=== PATIENT | male | born 1985 | race Caucasian/White ===

== ENCOUNTER 2020-10-27 20:44 | Emergency (ER) | payer OTHER, SELFPAY ==
[2020-10-27 21:00] VITALS: BP 151/98; PULSE 81; RESP 20; TEMP 36.7; O2SAT 100; BMI 25.8
--- NOTE | 2020-10-27 21:21 | HMH.EDUTC ---
[facility] Disposition Clinical Impression: Blood pressure check Disposition: Home, Self-Care Condition on Discharge: Good Instructions: Keeping Sodium Low When You're Eating on the Go, Low-Sodium Diet, Lower Sodium Intake Associated with Lower Blood Pressures and Decreased Str Additional Instructions: Lower your sodium intake and eating healthy may help with lowering your blood pressure *Avoid energy drinks, these can raise your blood pressure and cause you to have energy crashes Make sure to make appointment and follow up with PCP for re-evaluation of your blood pressure and treatment if needed Make sure that you are heating a heart healthy diet Exercise and weight loss can help with lowering your blood pressure Straight to ER if any life threatening symptoms Referrals: PCP,No [Primary Care Provider] - As needed Time of Disposition: 21:33 Medical Decision Making - Gurmeet Inquiry Pt receiving controlled substance: Sigrid Levi was queried for this patient: No Vital Signs: 10/27/20 21:00 Temperature 98.0 F Temperature Source Temporal Artery Scan Pulse Rate [Right Brachial] 81 Respiratory Rate 20 Blood Pressure [Right Arm] 151/98 H Blood Pressure Mean [Right Arm] 115 Blood Pressure Source [Right Arm] Automatic Cuff Blood Pressure Position [Right Arm] Sitting 02 Sat by Pulse Oximetry 100 Oxygen Delivery Method Room Air Medical Decision Narrative: Patient blood pressure checked multiple times in [facility] 140/93 in right and 144/93 in left arm Discussed life style changes after he advised he drinks 3-4 energy drinks a day and eats lots of junk foods Life style changes discussed and recommended and follow up with his PCP for re-evaluation of Blood pressure to see if they have worked or if they need to start him on medication [facility] HPI - General Stated complaint: Possible Blood Pressure high Time Seen by Provider: 10/27/20 21:21 Mode of Arrival: Ambulatory Source of Information: Patient Limitations: No Limitations Description of Symptoms (Recalled from Triage Doc. by RN): PATIENT REQUESTING TO HAVE BLOOD PRESSURE CHECKED. STATES HE HAS BEEN VERY TIRED AND HIS BLOOD PRESSURE WAS HIGH WHEN HE CHECKED IT AT [facility] Symptoms (Recalled from RN notes): No Resp Symptoms (Recalled from RN notes): No Skin Symptoms (Recalled from RN notes): No MS Symptoms (Recalled from RN notes): No Functional Status (Recalled from RN notes): WNL - History of Present Illness Provider Complaint: Patient states that he wanted to have his blood pressure checked States that he has been feeling a little tired lately and he checked his blood pressure at [employer] on one of the machines last night and it was high Denies any other symptoms - Related Data Allergies Allergy/AdvReac Type Severity Reaction Status Date / Time No Known Allergies Allergy Verified 10/27/20 21:13 - Worker's Comp Is this a Worker's Comp case?: No [facility] History - Hepatitis A Screen Drug use history?: No High risk sexual behaviors?: No History of sexually transmitted infection?: No Currently employed?: No Childcare worker?: No Do you have indoor plumbing?: Yes Do you have electricity?: Yes Attestation statement:: This patient has been screened for Hepatitis A risk factors. I have reviewed the patient's past medical history: Yes ROS Obtained: Yes All systems reviewed & no additional complaints, Yes Systems reviewed as appropriate & no additional complaints - Constitutional Constitutional: Reports system reviewed and no additional complaints, except as docu, Denies headache(s) - Eyes Eyes: Reports system reviewed and no additional complaints, except as docu, Denies blurry vision, Denies loss of vision, Denies photophobia - ENT Ears, Nose, Mouth, and Throat: Reports system reviewed and no additional complaints, except as docu - Cardiovascular Cardiovascular: Reports system reviewed and no additional complaints, except as docu, Denies chest pain, Denies dyspnea
[2020-10-27 21:27] VITALS: BP 140/93
[2020-10-27 21:35] VITALS: BP 140/93; PULSE 81; RESP 20; TEMP 36.7; O2SAT 100
== END 2020-10-27 21:42 | disposition home or self-care (01) ==
PROVIDERS: Emergency Provider Nurse Practitioner
DX: R03.0 Elevated blood-pressure reading, without diagnosis of hypertension (principal); R53.1 Weakness
CPT/HCPCS: 99202; G0463

== ENCOUNTER 2021-01-27 16:30 | Emergency (ER) | payer OTHER, SELFPAY ==
[2021-01-27 16:31] VITALS: BP 171/98; PULSE 92; RESP 16; TEMP 36.8; O2SAT 98; BMI 32.5
--- NOTE | 2021-01-27 17:01 | HMH.EDBACK ---
ED Disposition Clinical Impression: Strain of lumbar region Disposition: Home, Self-Care Condition on Discharge: Good Instructions: DI for Low Back Pain Additional Instructions: Return to the emergency department for worsening pain difficulty walking numbness weakness in legs or any other concerns within the next 8 hours otherwise follow-up as recommended Prescriptions: Hydrocod/Acet 5/325 mg [Racine 5/325mg tablet] 1 tab PO Q6HP PRN 3 Days #12 tab PRN Reason: Mild To Moderate Pain Transmission Status: Sent to [facility] Referrals: Provider,Referral, [Primary Care Provider] - - Critical Care Critical Care Time: No Attestation: On 01/27/21, the high probability of a clinically significant, sudden or life threatening deterioration of the following system(s) required my full and direct attention, intervention and personal management. The time I documented below is in addition to time spent performing reported procedures but includes the following listed in this critical care notation. Medical Decision Making - Medical Records Medical records reviewed: Yes: I reviewed the patient's medical records. - Gurmeet Inquiry Pt receiving controlled substance: Yes Gurmeet was queried for this patient: Yes Risks and benefits of using a controlled substance: were discussed with pt by me Vital Signs: 01/27/21 16:31 Temperature 98.2 F Temperature Source Oral Pulse Rate [Right] 92 H Respiratory Rate 16 Blood Pressure [Right Arm] 171/98 H Blood Pressure Mean [Right Arm] 122 Blood Pressure Source [Right Arm] Automatic Cuff Blood Pressure Position [Right Arm] Sitting 02 Sat by Pulse Oximetry 98 Oxygen Delivery Method Room Air Orders (Tests/Meds): ED MEDICATIONS Discontinued Medications Generic Name Dose Route Start Last Admin Trade Name Freq PRN Reason Stop Dose Admin Ketorolac Tromethamine 60 mg 01/27/21 16:40 01/27/21 17:01 Ketorolac 60mg/2ml Vial IM 01/27/21 16:41 60 mg ONCE ONE Administration Lidocaine 1 each 01/27/21 16:40 01/27/21 17:02 Lidocaine 5% Transdermal Patch TP 01/27/21 16:41 1 each ONCE ONE Administration Morphine Sulfate 4 mg 01/27/21 16:40 01/27/21 17:01 Morphine 2mg/Ml Syringe IM 01/27/21 16:41 4 mg ONCE ONE Administration Medical Decision Narrative: 35-year-old male presents with acute onset right lower back pain for the last week and a half. No red flags for cauda equina syndrome, metastasis traumatic injury or infectious etiology. Normal neurological exam without focal deficit. Plan to give pain medicine and refer as he does not have a primary care physician for continued management discussed possibility of needing physical therapy versus MRI. Patient's pain was improved upon reassessment requesting me discharge plan to refer to primary care physician as above Back Pain HPI - General Chief Complaint: Back Pain/Injury Stated Complaint: extreme low back pain (no AO) Time Seen by Provider: 01/27/21 16:30 Mode of Arrival: Ambulatory Limitations: No Limitations Description of Symptoms (Recalled from ER Triage Doc. by RN): patient complains of back pain x 1.5 week. middle to right pain, movement increased pain. - History of Present Illness HPI Narrative: Presents with right lower back pain for the last week and a half. He says he does not remember any injuries or traumatic events. He has no history of cancer and has no fever chills or IV drug use. No dysuria or flank pain no abdominal pain. He denies urinary or bowel incontinence or groin numbness. No weakness in lower extremities. He has been to the emergency room last week [facility] and had muscle relaxers that did not work. MD Complaint: back pain Onset (ago): week(s) (1) Location: lumbar spine Severity: mild Quality: dull Radiation: none - Related Data Previous Rx's Medication Instructions Recorded Hydrocod/Acet 5/325 mg [Racine 1 tab PO Q6HP PRN 3 Days #12 tab
--- NOTE | 2021-01-27 17:49 | PC.NURSE ---
PATIENT READY FOR DISCHARGE BUT WAITING FOR RIDE TO BE PRESENT PRIOR TO DISCHARGING PATIENT PER HOSPITAL POLICY
[2021-01-27 18:50] VITALS: BP 171/116; PULSE 88; RESP 16; TEMP 36.6; O2SAT 99
== END 2021-01-27 18:52 | disposition home or self-care (01) ==
PROVIDERS: Emergency Provider Emergency Medicine
DX: S39.012A Strain of muscle, fascia and tendon of lower back, initial encounter (principal)
CPT/HCPCS: 96372; 96375; 99282

== ENCOUNTER → 2021-03-03 18:13 | Outpatient (CLI) | payer OTHER, SELFPAY ==
[2021-03-03 19:35] LABS: Basophils # 0.1 K/mm3 (0-0.2); Eosinophils # 0.3 K/mm3 (0.0-0.4); Eosinophils % 2.2 % (0.1-12.0); Hematocrit 42.1 % (42.0-52.0); Hemoglobin 14.7 g/dL (14.1-18.0); Lymphocytes % 24.1 % (10-50); Mean Corpuscular HGB Conc 34.8 g/dL (31.8-35.4); Mean Corpuscular Hemoglobin 32.5 pg (27.0-31.2); Mean Corpuscular Volume 93.3 fl (80-94); Mean Platelet Volume 8.4 fl (7.4-10.4); Monocytes # 0.5 K/mm3 (0.1-1.0); Monocytes % 4.2 % (1.7-9.3); Neutrophils # 8.5 K/mm3 (1.8-7.8); Neutrophils % 68.4 % (37.0-80.0); Platelet Count 295 K/mm3 (142-424); Red Blood Count 4.52 M/mm3 (4.60-6.20); Red Cell Distribution Width 12.6 % (11.5-17.5); White Blood Count 12.4 K/mm3 (4.8-10.8)
[2021-03-03 19:52] LABS: Alanine Aminotransferase 14 U/L (12-78); Albumin Level 4.5 g/dl (3.5-5.0); Albumin/Globulin Ratio 1.9 (1.1-1.8); Alkaline Phosphatase 62 U/L (38-126); Anion Gap 15.2 mEq/L (5-15); Aspartate Amino Transferase 22 U/L (17-59); Bilirubin,Total 0.3 mg/dl (0.2-1.3); Blood Urea Nitrogen 13 mg/dl (9-20); Calcium 9.2 mg/dl (8.4-10.2); Carbon Dioxide 27 mmol/L (22.0-30.0); Chloride 104 mmol/L (98-107); Chol/HDL Ratio 5.1 (1-3.5); Cholesterol 137 mg/dl (140-200); Estimated Glomerular Filt Rate 75 ml/min (>60); GFR (African American) 91 ML/MIN (>60); Globulin 2.4 g/dL (1.3-3.2); Glucose 70 mg/dl (74-100); HDL Cholesterol 27 mg/dl (40-60); Potassium 4.2 mmoL/L (3.5-5.1); Sodium 142 mmol/L (136-145); Total Protein,Serum 6.9 g/dl (6.3-8.2); Triglycerides 215 mg/dl (30-150); VLDL Cholesterol 43 mg/dL (0-40)
[2021-03-03 20:00] LABS: 25-OH Vitamin D, Total 36.5 ng/mL (30-100)
[2021-03-03 20:08] LABS: T4 (Thyroxine) 9.6 ug/dl (5.53-11.0)
[2021-03-03 20:11] LABS: Direct LDL Cholesterol 86.43 mg/dL (100-129)
[2021-03-03 20:21] LABS: Thyroid Stimulating Hormone 1.41 uIU/mL (0.465-4.68)
== END ==
PROVIDERS: Visit Provider Nurse Practitioner Family
DX: I10 Essential (primary) hypertension (principal); F39 Unspecified mood [affective] disorder; Z79.899 Other long term (current) drug therapy
CPT/HCPCS: 80053; 80061; 82306; 84436; 84443; 85025

== ENCOUNTER 2021-05-15 00:31 | Emergency (ER) | payer SELFPAY ==
[2021-05-15 01:04] VITALS: BP 135/86; PULSE 75; RESP 18; TEMP 36.7; O2SAT 99; BMI 29.8
--- NOTE | 2021-05-15 01:09 | XR_ITS ---
PROCEDURE INFORMATION: Exam: XR Right Hip Exam date and time: 05/15/2021 1:09 AM Age: 36 years old Clinical indication: Hip pain; Right hip; Additional info: Hip to knee pain TECHNIQUE: Imaging protocol: XR Right hip. Views: 2 or 3 views hip with pelvis when performed. COMPARISON: No relevant prior studies available. FINDINGS: Bones/joints: The right hip joint space appears well maintained. No acute fracture. Soft tissues: Unremarkable. IMPRESSION: No acute findings.
--- NOTE | 2021-05-15 01:09 | XR_ITS ---
PROCEDURE INFORMATION: Exam: XR Right Knee Exam date and time: 05/15/2021 1:09 AM Age: 36 years old Clinical indication: Pain; Knee; Right; Additional info: Pain with radiation from hip to knee TECHNIQUE: Imaging protocol: XR Right knee. Views: 3 views. COMPARISON: No relevant prior studies available. FINDINGS: Bones/joints: There are unfused loose osseous bodies noted along the tibial tuberosity. This suggests the presence of Malden-Schlatter's disease. This is felt to be a remote finding. Position of the patella with respect to the intercondylar notch of the distal femur is normal. There is no evidence of acute fracture. Mild narrowing of the medial compartment identified. Osseous mineralization is normal. Soft tissues: No evidence of knee effusion. There is no overlying soft tissue swelling. IMPRESSION: No acute findings.
--- NOTE | 2021-05-15 01:36 | HMH.EDLOEX ---
ED Disposition Clinical Impression: Acute internal derangement of knee Qualifiers: Laterality: right Qualified Code(s): M23.91 - Unspecified internal derangement of right knee Disposition: Home, Self-Care Condition on Discharge: Good Instructions: DI for Knee Pain, How to Use a Knee Immobilizer Additional Instructions: use meds and see pcp for follow up Referrals: Dontrell Hansen APRN [Primary Care Provider] - - Critical Care Critical Care Time: No Attestation: On 05/15/21, the high probability of a clinically significant, sudden or life threatening deterioration of the following system(s) required my full and direct attention, intervention and personal management. The time I documented below is in addition to time spent performing reported procedures but includes the following listed in this critical care notation. Medical Decision Making - Medical Records Medical records reviewed: Yes: I reviewed the patient's medical records. - Gurmeet Inquiry Pt receiving controlled substance: No Vital Signs: 05/15/21 01:04 Temperature 98.1 F Temperature Source Oral Pulse Rate [Right Brachial] 75 Respiratory Rate 18 Blood Pressure [Right Arm] 135/86 Blood Pressure Mean [Right Arm] 102 Blood Pressure Source [Right Arm] Automatic Cuff Blood Pressure Position [Right Arm] Sitting 02 Sat by Pulse Oximetry 99 Oxygen Delivery Method Room Air - Lab Data Lab results reviewed: Yes: I reviewed the patient's lab results. Orders (Tests/Meds): ED MEDICATIONS Discontinued Medications Generic Name Dose Route Start Last Admin Trade Name Freq PRN Reason Stop Dose Admin Prednisone 60 mg 05/15/21 01:46 Prednisone 20mg Tab PO 05/15/21 01:47 ONCE ONE ORDERS Category Date Time Status XR hip RT 2-3V w/pelvis Stat Exams 05/15/21 01:09 Ordered XR knee RT 4V Stat Exams 05/15/21 01:09 Ordered - Radiology Data #1 Image(s): Knee Image Reviewed: Yes I reviewed the patient's radiology image Preliminary Findings: No Fracture Seen Medical Decision Narrative: trial of meds and will need ortho and mri Lower Extremity Injury HPI - General Chief Complaint: Extremity Injury, Lower Stated Complaint: Sharp pain in right knee radiating down leg Time Seen by Provider: 05/15/21 01:36 Mode of Arrival: Family Vehicle Source of Information: Patient, Medical Record Limitations: No Limitations Description of Symptoms (Recalled from ER Triage Doc. by RN): right knee pain that began 2 days ago; states right knee had a previous surgery on the knee for his meniscus and is worried he might've hurt that in some way. no obvious injury that he recalls. - History of Present Illness HPI Narrative: progressive rt knee pain with no acute trauma but has had prev meniscal injury MD complaint: knee injury Onset (ago): day(s) Injury: Right: knee Type of Injury: unknown Place: home Severity: moderate Exacerbating factors: weight bearing, movement Associated symptoms: able to partially bear weight Other symptoms: none - Related Data Previous Rx's Medication Instructions Recorded cariprazine 1.5 mg capsule 1.5 mg PO DAILY #90 cap 03/23/21 hydrochlorothiazide 25 mg tablet 25 mg PO DAILY #90 tab 03/23/21 lisinopril 10 mg tablet 10 mg PO DAILY #90 tab 03/23/21 hydrocodone 5 mg-acetaminophen 325 1 tab PO BID PRN #6 tab 03/30/21 mg tablet Allergies Allergy/AdvReac Type Severity Reaction Status Date / Time No Known Allergies Allergy Verified 03/30/21 11:19 [facility] History - Hepatitis A Screen Drug use history?: No High risk sexual behaviors?: No History of sexually transmitted infection?: No Currently employed?: No Childcare worker?: No Do you have indoor plumbing?: Yes Do you have electricity?: Yes Attestation statement:: This patient has been screened for Hepatitis A risk factors. I have reviewed the patient's past medical history: Yes - Social History Smoking Status: Current every day sm
[2021-05-15 02:35] VITALS: BP 121/70; PULSE 79; RESP 16; TEMP 36.8; O2SAT 98
== END 2021-05-15 02:38 | disposition home or self-care (01) ==
PROVIDERS: Emergency Provider Emergency Medicine; PCP Nurse Practitioner Family
DX: M23.91 Unspecified internal derangement of right knee (principal); Z88.6 Allergy status to analgesic agent
CPT/HCPCS: 73502; 73562; 99282

== ENCOUNTER → 2021-05-17 15:28 | Outpatient (CLI) | payer SELFPAY ==
--- NOTE | 2021-05-17 15:35 | MR_ITS ---
PROCEDURE INFORMATION: Exam: MR Right Lower Extremity Joint Without Contrast, Knee Exam date and time: 05/17/2021 3:35 PM Age: 36 years old Clinical indication: Pain; Knee; Right; Prior surgery; Surgery date: 6+ months; Additional info: Right knee pain, prior HX surgery on RT knee x3-4yrs ago. Swelling in knee. Lateral sided knee pain. Prior x-ray 05-15-21. TECHNIQUE: Imaging protocol: MR of the Right lower extremity joint without contrast. Exam focused on the knee. COMPARISON: CR XR KNEE RT 3V 05/15/2021 1:46 AM FINDINGS: Bones and cartilage: There is grade I (out of IV) chondromalacia involving the patellofemoral joint. There is grade II (out of IV) low-grade partial-thickness cartilage loss involving the medial compartment. No significant cartilage damage involves the lateral compartment. There is no acute fracture or dislocation. No aggressive bone lesions are present. Mild marginal osteophytes involve the medial joint compartment. There is mild lateral subluxation of the patella. Joint spaces: A moderate joint effusion involves the knee. Periarticular cysts: A small popliteal cyst is present. Medial meniscus: Complex re-tearing involves the anterior horn, body and posterior horn of the medial meniscus with abnormal signal extending to both the superior and inferior meniscal surfaces. The diminutive size of the medial meniscus suggests prior partial meniscectomy. Lateral meniscus: The lateral meniscus shows no convincing tear although there is a 1 mm intermediate signal intensity focus in the posterior horn near the posterior root that extends to the superior meniscal surface (series 4/image 10). Anterior cruciate ligament: Increased T2 signal within the anterior cruciate ligament is consistent with mucinous degeneration. The anterior cruciate ligament fibers are intact. Posterior cruciate ligament: Intermediate T2 signal intensity within the posterior cruciate ligament proximally may represent mucinous degeneration or prior low-grade injury. Medial capsule and supporting structures: No tear. Soft tissue edema superficial to the medial collateral ligament without edema deep to the ligament, and with edema extending to the posterior aspect of the knee makes a medial collateral ligament sprain less likely. Lateral capsule and supporting structures: The lateral collateral ligament complex is intact. Extensor mechanism of knee: Thickening of the distal patellar tendon with associated irregularity and chronic fragmentation of the tibial tubercle is consistent with remote Charlo-Schlatter disease. There is moderate tendinosis of the more proximal patellar tendon. Mild tendinosis involves the distal quadriceps tendon. Muscles: Unremarkable. Soft tissues: A multiloculated ganglion or synovial cyst lies along the posterior aspect of the posterior cruciate ligament with adjacent presumed synovitis. There are normal postoperative punctate foci of micrometallic artifact in the soft tissues. There is moderate edema along the posterior and medial knee deep soft tissues which is of uncertain etiology. The lack of edema deep to the medial collateral ligament makes an medial collateral ligament sprain less likely. IMPRESSION: 1. Complex re-tearing of the medial meniscus superimposed on presumed prior partial medial meniscectomy. 2. Chronic Aguilar-Schlatter disease. 3. Grade I chondromalacia patella.
== END ==
PROVIDERS: PCP Nurse Practitioner Family; Visit Provider Emergency Medicine
DX: M25.561 Pain in right knee (principal); M23.91 Unspecified internal derangement of right knee
CPT/HCPCS: 73721

== ENCOUNTER 2024-11-06 17:15 | Emergency (ER) | payer SELFPAY ==
[2024-11-06 17:16] VITALS: BP 154/99; PULSE 92; RESP 18; TEMP 36.8; O2SAT 97; BMI 38.0
--- NOTE | 2024-11-06 17:16 | ECG_ITS ---
APPROVED REPORT Exam: Resting ECG HR:89 bpm ECG Measurements Heart Rate 89 AXES IL 173 P 45 QRSd 108 QRS 10 QT 343 T 18 QTc 390 Conclusion Sinus rhythm Electronically signed by : YOSI LEVY, 11/06/2024 22:32:26
--- NOTE | 2024-11-06 17:19 | XR_ITS ---
PROCEDURE INFORMATION: Exam: XR Chest Exam date and time: 11/06/2024 5:41 PM Age: 39 years old Clinical indication: Pain; Chest pressure; Additional info: R sided chest pain TECHNIQUE: Imaging protocol: Radiologic exam of the chest. Views: 1 view. COMPARISON: CR XR CHEST PORTABLE 11/06/2024 5:41 PM FINDINGS: Lungs: See Pleural spaces finding. Pleural spaces: Low lung volumes are present without pleural effusions or consolidations that project above the diaphragm. Heart/Mediastinum: Unremarkable. No cardiomegaly. Bones/joints: Unremarkable. IMPRESSION: No acute findings.
--- NOTE | 2024-11-06 17:20 | PC.NURSE ---
[facility]j CERVANTES at bedside
--- NOTE | 2024-11-06 17:24 | ED_ITS ---
Discharge Plan Disposition Patient Disposition: Home, Self-Care Condition: Good Prescriptions Prescriptions: New pantoprazole [Protonix] 40 mg tablet,delayed release (DR/EC) 40 mg PO HS Qty: 30 0RF No Action lisinopril-hydrochlorothiazide 20-12.5 mg tablet 1 tab PO DAILY Patient Comments: TAKE ONE TABLET BY MOUTH ONCE DAILY omeprazole 20 mg capsule,delayed release(DR/EC) 20 mg PO DAILY Patient Comments: TAKE ONE CAPSULE BY MOUTH EVERY DAY Referrals Follow up/Referrals: Evangelist Torres II, MD [Staff Physician] - See instructions Provider,MD Jennifer [Referring] - See instructions Activity Restrictions/Add. Instructions Additional Instructions/Restrictions: As we discussed I have sent in a proton pump inhibitor to your pharmacy. I recommend continuing to take that starting tomorrow night. I have also referred you to gastroenterology for upper endoscopy. If you have any worsening signs or symptoms increasing pain fever bleeding return to the emergency department Clinical Impressions Clinical Impression: Right-sided chest pain, Right upper quadrant abdominal pain Print Language Print Language: Yakut Discharge ED Provider: Mandeep Sims HPI <HELEN Vincent - Last Filed: 11/06/24 21:34> General Chief Complaint: Chest Pain Stated Complaint: Chest Pain Time Seen by Provider: 11/06/24 17:18 History of Present Illness HPI narrative: Patient presents for evaluation of chest pain. Patient gives a history of 4 days of continuous right sided chest pain. He states that he woke up with it. It has been sharp constant does not radiate. It is varied in intensity but is never been absent. He reports some shortness of breath with exertion but denies fever chills hemoptysis hematochezia melena nausea vomiting diarrhea. Patient is a smoker and does have high blood pressure and also has a strong family history of early cardiac with specifically his brother. Related Data Home Medications ?Medication ?Instructions ?Recorded ?Confirmed lisinopril 20 1 tab PO DAILY 11/06/24 11/06/24 mg-hydrochlorothiazide 12.5 mg tablet omeprazole 20 mg capsule,delayed 20 mg PO DAILY 11/06/24 11/06/24 release Previous Rx's ?Medication ?Instructions ?Recorded pantoprazole 40 mg tablet,delayed 40 mg PO HS #30 tabs 11/06/24 release (Protonix) Allergies Allergy/AdvReac Type Severity Reaction Status Date / Time hydrocodone Allergy Intermediate Rash Verified 11/23/21 16:11 [facility] <HELEN Vincent - Last Filed: 11/06/24 21:34> [facility] Disclaimer: The information contained in this section may have been updated after the patient was seen, as this information can be updated by other users. Medical History (Updated 11/06/24 @ 19:43 by HELEN Vincent) HLD (hyperlipidemia) HTN (hypertension) Surgical History (Updated 11/06/24 @ 17:41 by Dang Angel, RN) Hx of right knee surgery Social History Smoking Status: Current every day smoker alcohol intake: never substance use type: denies use current occupational status: employed Travel in the last 8 weeks: None Have you lived/traveled outside US in past 30 days?: No Contact w/someone who lives/traveled outside US past 30 days?: No Exposure to someone with infectious disease in past 14 days?: No Do you have a fever (greater than 100.4 F or 38 C)?: No Have you tested positive for COVID-19: No Exposed to someone with COVID-19 in past 14 days?: No Do you have a sore throat?: No Do you have a cough?: No Do you have any weakness?: No Do you have any diarrhea?: No Are you experiencing any unusual bleeding?: No Do you have any muscle aches/pain?: No Do you have any abdominal pain?: No Are you experiencing loss of taste or smell?: No Other Medical History Have you received the Flu Vaccine for this season: No Have you received the Pneumonia Vaccine: No <HELEN Vincent - Last Filed: 11/06/24 21:34> ROS Obtained: Yes Systems reviewed as appropriate & no additional complaints except as documented Physical Exam <HELEN Vincent - Last Filed: 11/06/24 21:34> General General appearance: alert and in no apparent distress Respiratory Respiratory exam: Absent normal lung sounds bilaterally Cardiovascular Cardiovascular exam: Present regular rate Neurological Exam Neurological exam: Present alert and oriented X3 HEART Score <HELEN Vincent - Last Filed: 11/06/24 21:34> HEART Score HEART Score assessment performed?: Yes History (anamnesis): Slightly suspicious ECG: Normal Age: <45 years Risk factors: 3 or more risk factors Troponin: </= normal limit HEART Score: 2 <Mandeep Sims MD - Last Filed: 11/06/24 21:42> HEART Score HEART Score: 2 Procedures <Mandeep Sims MD - Last Filed: 11/06/24 21:42> Limited Ultrasound Indication:: Limited RUQ ultrasound Indication: Pain Identified structures: -Gallbladder -Gallbladder wall -Common bile duct -Liver Findings: Sonographic Mcrae sign: Absent Gallstones: Absent Sludge: Absent Pericholecystic fluid: Absent Maximal GB wall thickness (mm) (normal is </= 3mm): Normal Common bile duct width (mm) (normal is </= 6mm): Unable to be visualized Gallbladder width (cm) (normal is < 4cm): Normal Gallbladder length (cm) (normal is < 10cm): Normal Impression: Normal right upper quadrant ultrasound, unable to visualize common bile duct Images were saved to permanent archive The study was technically adequate CPT 38380-27 This study was performed by me, and I personally interpreted all images/videos. Based on my clinical judgement, these images were adequate and did not necessitate further imaging. Critical Care <HELEN Vincent - Last Filed: 11/06/24 21:34> Critical Care Time Critical Care Time: Yes Attestation: On 11/06/24, the high probability of a clinically significant, sudden or life threatening deterioration of the following system(s) required my full and direct attention, intervention and personal management. The time I documented below is in addition to time spent performing reported procedures but includes the following listed in this critical care notation. Total Time Total Critical Care Time: 35 Medical Decision Making <HELEN Vincent - Last Filed: 11/06/24 21:34> Medical Records Medical records reviewed: Yes I reviewed the patient's medical records. Gurmeet Inquiry Pt receiving controlled substance: No Vital Signs Vital Signs: 11/06/24 17:16 11/06/24 17:31 11/06/24 17:45 Temperature 98.2 F Temperature Source Oral Pulse Rate 83 96 H Pulse Rate [Right] 92 H Respiratory Rate 18 16 14 Blood Pressure 128/87 128/87 Blood Pressure [Right Arm] 154/99 H Blood Pressure Mean [Right Arm] 117 Blood Pressure Source [Right Arm] Automatic Cuff 02 Sat by Pulse Oximetry 97 96 98 Oxygen Delivery Method Room Air 11/06/24 18:30 11/06/24 19:55 Temperature 98.3 F Temperature Source Oral Pulse Rate 92 H 89 Pulse Rate [Right] Respiratory Rate 17 16 Blood Pressure 129/85 127/89 Blood Pressure [Right Arm] Blood Pressure Mean [Right Arm] Blood Pressure Source [Right Arm] 02 Sat by Pulse Oximetry 95 Oxygen Delivery Method Room Air Room Air Lab Data Lab results reviewed: Yes I reviewed the patient's lab results. Labs: Lab Results 11/06/24 17:18: WBC 14.6 H, RBC 4.45 L, Hgb 14.8, Hct 42.9, MCV 96.4 H, MCH 33.3 H, MCHC 34.5, RDW 12.2, Plt Count 272, MPV 9.5, Neut % (Auto) 63.8, Lymph % (Auto) 27.1, Ramsey % (Auto) 6.0, Eos % (Auto) 2.1, Baso % (Auto) 0.5, Neut # (Auto) 9.3 H, Lymph # (Auto) 4.0, Ramsey # (Auto) 0.9, Eos # (Auto) 0.3, Baso # (Auto) 0.1, PT 9.8 L, INR 0.86 L, Sodium 140, Potassium 4.1, Chloride 104, Carbon Dioxide 30, Anion Gap 10.1, BUN 16, Creatinine 1.30 H, Estimated Creat Clear 134, Estimated GFR 61, Est GFR ( Amer) 74, Glucose 87, Calcium 9.1, Magnesium 2.3, Total Bilirubin 0.4, AST 44, ALT 47, Alkaline Phosphatase 81, Troponin I < 0.01, NT-Pro-B Natriuret Pep < 20.0, Total Protein 7.2, Albumin 4.6, Globulin 2.6, Albumin/Globulin Ratio 1.8, Lipase 174, Procalcitonin 0.099, HCV Ab YANET w/Rflx PCR Qn Negative, HIV Ag/Ab Combo Qual Negative 11/06/24 17:31: SARS-CoV-2 (PCR) Not detected, Influenza A Untype (PCR) Not detected, Influenza Type B (PCR) Not detected 11/06/24 17:18 11/06/24 17:18 Response Orders (Tests/Meds): ED MEDICATIONS Discontinued Medications Generic Name Dose Route Start Last Admin Trade Name Lesa PRN Reason Stop Dose Admin Acetaminophen 1,000 mg 11/06/24 17:25 11/06/24 17:38 Acetaminophen 1,000mg/100ml Vial IV 11/06/24 17:26 1,000 mg ONCE ONE Administration Aspirin 324 mg 11/06/24 17:34 11/06/24 17:39 Aspirin 81mg Chewable Tablet PO 11/06/24 17:35 324 mg ONCE ONE Administration Belladonna Alkaloids 60 ml 11/06/24 17:25 11/06/24 17:39 Belladonna Alkaloids 60 Ml Ml PO 11/06/24 17:26 60 ml ONCE ONE Administration Diphenhydramine HCl 25 mg 11/06/24 18:30 11/06/24 19:12 Diphenhydramine 50mg/Ml Vial IV 11/06/24 18:31 25 mg ONCE ONE Administration Hydromorphone HCl 0.5 mg 11/06/24 18:30 11/06/24 19:12 Hydromorphone 2mg/Ml Syringe IV 11/06/24 18:31 0.5 mg ONCE ONE Administration Iopamidol 70 ml 11/06/24 17:54 11/06/24 17:55 Iopamidol-370 (76%);100ml Bottle IV 11/06/24 17:55 70 ml ONCE ONE Administration Ketorolac Tromethamine 15 mg 11/06/24 17:25 11/06/24 17:39 Ketorolac 30mg/Ml Vial IV 11/06/24 17:26 15 mg ONCE ONE Administration Ondansetron HCl 4 mg 11/06/24 17:25 11/06/24 17:39 Ondansetron 4mg/2ml Vial IV 11/06/24 17:26 4 mg ONCE ONE Administration Pantoprazole Sodium 40 mg 11/06/24 19:36 Pantoprazole 40mg Tablet PO 11/06/24 19:37 ONCE ONE Sodium Chloride 50 ml 11/06/24 17:54 11/06/24 17:55 0.9 % Sodium Chloride 50 Ml Vial IV 11/06/24 17:55 50 ml ONCE ONE Administration Sodium Chloride 10 ml 11/06/24 17:54 11/06/24 17:55 Sodium Chloride 0.9% 10ml Syr (Rad Only) IV 11/06/24 17:55 10 ml ONCE ONE Administration ORDERS Category Date Time Status CT abdomen pelvis w con Stat Cat Scan 11/06/24 17:[address] angio chest PE protocol Stat Cat Scan 11/06/24 17:24 Completed CXR --portable [XR chest portable] Stat Exams 11/06/24 17:19 Completed POCUS Point of Care (ER Only) Stat Exams 11/06/24 18:42 Completed BNP [NT Pro Brain Natriuretic Pep.] Stat Lab 11/06/24 17:18 Completed Complete Blood Count Auto Diff Stat Lab 11/06/24 17:18 Completed Comprehensive Metabolic Panel Stat Lab 11/06/24 17:18 Completed HIV Combo Stat Lab 11/06/24 17:18 Completed Hepatitis C Ab Qual. W/ RFX Stat Lab 11/06/24 17:18 Completed INR [Prothrombin Time INR] Stat Lab 11/06/24 17:18 Completed Lipase Stat Lab 11/06/24 17:18 Completed Magnesium Stat Lab 11/06/24 17:18 Completed Procalcitonin Stat Lab 11/06/24 17:18 Completed Rapid PCR Covid and Flu A/B Stat Lab 11/06/24 17:31 Completed Troponin I Q3H Lab 11/06/24 17:18 Completed MDM Narrative Medical Decision Narrative: In summary patient is a 39-year-old male who presents to the emergency department for evaluation of right-sided chest pain. Patient is hemodynamically stable with blood pressure 154/99 pulse 92 normal sinus rhythm on bedside monitor breathing 18 times a minute satting at 97% on room air upon arrival, afebrile at 98.2. Physical exam is remarkable for late expiration Rales in the right lower lung card the left lung card are clear to auscultation. Patient actually has tenderness to palpation in the anterior thoracicoabdominal wall but he has a negative Mcrae sign on exam. Differential diagnosis includes pneumonia versus PE versus atypical ACS versus cholecystitis versus ulcer etc. Initial workup will be conducted with hematologic labs twelve-lead EKG CT scan PE protocol CT abdomen pelvis with contrast. Initial interventions include acetaminophen GI cocktail Toradol. Initial workup reviewed by me and his hematologic labs are significant for white count of 14.6 normal H&H absolute neutrophil count of 9.3 INR 0.86 creatinine of 1.3 a troponin of less than 0.01 and given that this has been continuous pain for 4 days essentially rules out ACS with a normal EKG, his NT proBNP is less than 20, transaminases are normal bilirubin is normal procalcitonin is 0.099 lipase is 174 COVID and flu are negative and my informal interpretation CT scan PE protocol shows no evidence of thrombus or acute intrathoracic abnormality and CT scan abdomen pelvis shows no acute intra-abdominal pathology and POCUS shows no evidence of cholecystitis or cholelithiasis. Upon repeat evaluation patient had significant reduction in his pain after initial intervention and additional Benadryl and Dilaudid. Given this there remains diagnostic uncertainty as to the cause of the patient's pain but we have essentially ruled out any serious or life-threatening condition including ACS PE pneumonia cholecystitis. It is possible that the patient may have gastritis/ulcer disease however GI cocktail gave the patient no relief either. Given this I had a shared decision-making discussion with the patient regarding his CONTI findings and recommendations and plan will be to start the patient on a PPI refer the patient to gastroenterology for further CONTI refer the patient to cardiology for restratification given his strong family history and strict return precautions including fever vomiting blood inability to tolerate oral intake etc. Patient felt comfortable going home with those precautions. <Mandeep Sims MD - Last Filed: 11/06/24 21:42> Vital Signs Vital Signs: 11/06/24 17:16 11/06/24 17:31 11/06/24 17:45 Temperature 98.2 F Temperature Source Oral Pulse Rate 83 96 H Pulse Rate [Right] 92 H Respiratory Rate 18 16 14 Blood Pressure 128/87 128/87 Blood Pressure [Right Arm] 154/99 H Blood Pressure Mean [Right Arm] 117 Blood Pressure Source [Right Arm] Automatic Cuff 02 Sat by Pulse Oximetry 97 96 98 Oxygen Delivery Method Room Air 11/06/24 18:30 11/06/24 19:55 Temperature 98.3 F Temperature Source Oral Pulse Rate 92 H 89 Pulse Rate [Right] Respiratory Rate 17 16 Blood Pressure 129/85 127/89 Blood Pressure [Right Arm] Blood Pressure Mean [Right Arm] Blood Pressure Source [Right Arm] 02 Sat by Pulse Oximetry 95 Oxygen Delivery Method Room Air Room Air Lab Data Labs: Lab Results 11/06/24 17:18: WBC 14.6 H, RBC 4.45 L, Hgb 14.8, Hct 42.9, MCV 96.4 H, MCH 33.3 H, MCHC 34.5, RDW 12.2, Plt Count 272, MPV 9.5, Neut % (Auto) 63.8, Lymph % (Auto) 27.1, Ramsey % (Auto) 6.0, Eos % (Auto) 2.1, Baso % (Auto) 0.5, Neut # (Auto) 9.3 H, Lymph # (Auto) 4.0, Ramsey # (Auto) 0.9, Eos # (Auto) 0.3, Baso # (Auto) 0.1, PT 9.8 L, INR 0.86 L, Sodium 140, Potassium 4.1, Chloride 104, Carbon Dioxide 30, Anion Gap 10.1, BUN 16, Creatinine 1.30 H, Estimated Creat Clear 134, Estimated GFR 61, Est GFR ( Amer) 74, Glucose 87, Calcium 9.1, Magnesium 2.3, Total Bilirubin 0.4, AST 44, ALT 47, Alkaline Phosphatase 81, Troponin I < 0.01, NT-Pro-B Natriuret Pep < 20.0, Total Protein 7.2, Albumin 4.6, Globulin 2.6, Albumin/Globulin Ratio 1.8, Lipase 174, Procalcitonin 0.099, HCV Ab YANET w/Rflx PCR Qn Negative, HIV Ag/Ab Combo Qual Negative 11/06/24 17:31: SARS-CoV-2 (PCR) Not detected, Influenza A Untype (PCR) Not detected, Influenza Type B (PCR) Not detected Response Orders (Tests/Meds): ED MEDICATIONS Discontinued Medications Generic Name Dose Route Start Last Admin Trade Name Freq PRN Reason Stop Dose Admin Acetaminophen 1,000 mg 11/06/24 17:25 11/06/24 17:38 Acetaminophen 1,000mg/100ml Vial IV 11/06/24 17:26 1,000 mg ONCE ONE Administration Aspirin 324 mg 11/06/24 17:34 11/06/24 17:39 Aspirin 81mg Chewable Tablet PO 11/06/24 17:35 324 mg ONCE ONE Administration Belladonna Alkaloids 60 ml 11/06/24 17:25 11/06/24 17:39 Belladonna Alkaloids 60 Ml Ml PO 11/06/24 17:26 60 ml ONCE ONE Administration Diphenhydramine HCl 25 mg 11/06/24 18:30 11/06/24 19:12 Diphenhydramine 50mg/Ml Vial IV 11/06/24 18:31 25 mg ONCE ONE Administration Hydromorphone HCl 0.5 mg 11/06/24 18:30 11/06/24 19:12 Hydromorphone 2mg/Ml Syringe IV 11/06/24 18:31 0.5 mg ONCE ONE Administration Iopamidol 70 ml 11/06/24 17:54 11/06/24 17:55 Iopamidol-370 (76%);100ml Bottle IV 11/06/24 17:55 70 ml ONCE ONE Administration Ketorolac Tromethamine 15 mg 11/06/24 17:25 11/06/24 17:39 Ketorolac 30mg/Ml Vial IV 11/06/24 17:26 15 mg ONCE ONE Administration Ondansetron HCl 4 mg 11/06/24 17:25 11/06/24 17:39 Ondansetron 4mg/2ml Vial IV 11/06/24 17:26 4 mg ONCE ONE Administration Pantoprazole Sodium 40 mg 11/06/24 19:36 Pantoprazole 40mg Tablet PO 11/06/24 19:37 ONCE ONE Sodium Chloride 50 ml 11/06/24 17:54 11/06/24 17:55 0.9 % Sodium Chloride 50 Ml Vial IV 11/06/24 17:55 50 ml ONCE ONE Administration Sodium Chloride 10 ml 11/06/24 17:54 11/06/24 17:55 Sodium Chloride 0.9% 10ml Syr (Rad Only) IV 11/06/24 17:55 10 ml ONCE ONE Administration ORDERS Category Date Time Status CT abdomen pelvis w con Stat Cat Scan 11/06/24 17:[address] angio chest PE protocol Stat Cat Scan 11/06/24 17:24 Completed CXR --portable [XR chest portable] Stat Exams 11/06/24 17:19 Completed POCUS Point of Care (ER Only) Stat Exams 11/06/24 18:42 Completed BNP [NT Pro Brain Natriuretic Pep.] Stat Lab 11/06/24 17:18 Completed Complete Blood Count Auto Diff Stat Lab 11/06/24 17:18 Completed Comprehensive Metabolic Panel Stat Lab 11/06/24 17:18 Completed HIV Combo Stat Lab 11/06/24 17:18 Completed Hepatitis C Ab Qual. W/ RFX Stat Lab 11/06/24 17:18 Completed INR [Prothrombin Time INR] Stat Lab 11/06/24 17:18 Completed Lipase Stat Lab 11/06/24 17:18 Completed Magnesium Stat Lab 11/06/24 17:18 Completed Procalcitonin Stat Lab 11/06/24 17:18 Completed Rapid PCR Covid and Flu A/B Stat Lab 11/06/24 17:31 Completed Troponin I Q3H Lab 11/06/24 17:18 Completed ECG Data Tracing #1: Attestation: I reviewed this ECG and interpreted as documented below: (Sinus rhythm 89 bpm with IN interval 173, QRS 108, QTc 390. Normal axis no acute ischemic change) MDM Narrative Medical Decision Narrative: In summary patient is a 39-year-old male who presents to the emergency department for evaluation of right-sided chest pain. Patient is hemodynamically stable with blood pressure 154/99 pulse 92 normal sinus rhythm on bedside monitor breathing 18 times a minute satting at 97% on room air upon arrival, afebrile at 98.2. Physical exam is remarkable for late expiration Rales in the right lower lung card the left lung card are clear to auscultation. Patient actually has tenderness to palpation in the anterior thoracicoabdominal wall but he has a negative Mcrae sign on exam. Differential diagnosis includes pneumonia versus PE versus atypical ACS versus cholecystitis versus ulcer etc. Initial workup will be conducted with hematologic labs twelve-lead EKG CT scan PE protocol CT abdomen pelvis with contrast. Initial interventions include acetaminophen GI cocktail Toradol. Initial workup reviewed by me and his hematologic labs are significant for white count of 14.6 normal H&H absolute neutrophil count of 9.3 INR 0.86 creatinine of 1.3 a troponin of less than 0.01 and given that this has been continuous pain for 4 days essentially rules out ACS with a normal EKG, his NT proBNP is less than 20, transaminases are normal bilirubin is normal procalcitonin is 0.099 lipase is 174 COVID and flu are negative and my informal interpretation CT scan PE protocol shows no evidence of thrombus or acute intrathoracic abnormality and CT scan abdomen pelvis shows no acute intra-abdominal pathology and POCUS shows no evidence of cholecystitis or cholelithiasis. Upon repeat evaluation patient had significant reduction in his pain after initial intervention and additional Benadryl and Dilaudid. Given this there remains diagnostic uncertainty as to the cause of the patient's pain but we have essentially ruled out any serious or life-threatening condition including ACS PE pneumonia cholecystitis. It is possible that the patient may have gastritis/ulcer disease however GI cocktail gave the patient no relief either. Given this I had a shared decision-making discussion with the patient regarding his CONTI findings and recommendations and plan will be to start the patient on a PPI refer the patient to gastroenterology for further CONTI refer the patient to cardiology for restratification given his strong family history and strict return precautions including fever vomiting blood inability to tolerate oral intake etc. Patient felt comfortable going home with those precautions. I was consulted by the TONG, and we discussed the complexity of the problems being addressed. I approved the treatment and management plan for this patient's care in the Emergency Department, thus performing a substantive portion of the medical decision making. Mandeep Sims MD
--- NOTE | 2024-11-06 17:24 | CT_ITS ---
PROCEDURE INFORMATION: Exam: CT Abdomen And Pelvis With Contrast Exam date and time: 11/06/2024 5:54 PM Age: 39 years old Clinical indication: Abdominal pain; Additional info: Right-sided thoracoabdominal pain TECHNIQUE: Imaging protocol: Computed tomography of the abdomen and pelvis with contrast. 3D rendering (Not supervised by radiologist): MIP and/or 3D reconstructed images were created by the technologist. Radiation optimization: All CT scans at this facility use at least one of these dose optimization techniques: automated exposure control; mA and/or kV adjustment per patient size (includes targeted exams where dose is matched to clinical indication); or iterative reconstruction. Contrast material: ISOVUE; Contrast volume: 80 ml; Contrast route: IV; COMPARISON: CR XR HIP RT 2-3V W/PELVIS 05/15/2021 1:43 AM FINDINGS: Liver: There is diffuse hypoattenuation of the liver compatible with moderate hepatic steatosis with hepatomegaly measuring 23.3 cm. Gallbladder and biliary ducts: Normal. No calcified stones. No ductal dilation. Pancreas: Normal. No ductal dilation. Spleen: Normal. No splenomegaly. Adrenal glands: Normal. No mass. Kidneys and ureters: Normal. No hydronephrosis. Stomach and bowel: Unremarkable. No obstruction. No mucosal thickening. Appendix: No evidence of appendicitis. Intraperitoneal space: Unremarkable. No free air. No significant fluid collection. Vasculature: Unremarkable. No abdominal aortic aneurysm. Lymph nodes: Unremarkable. No enlarged lymph nodes. Urinary bladder: Unremarkable as visualized. Reproductive: Unremarkable as visualized. Bones/joints: Mild loss of intervertebral disc space with degenerative changes involving lower thoracic and lumbar spine. Soft tissues: Normal. IMPRESSION: There is diffuse hypoattenuation of the liver compatible with moderate hepatic steatosis with hepatomegaly measuring 23.3 cm.
--- NOTE | 2024-11-06 17:24 | CT_ITS ---
PROCEDURE INFORMATION: Exam: CTA Chest With Contrast Exam date and time: 11/06/2024 5:54 PM Age: 39 years old Clinical indication: Pain; Right-sided; Additional info: Right-sided thoracoabdominal pain TECHNIQUE: Imaging protocol: Computed tomographic angiography of the chest with contrast. Exam focused on the arteries. 3D rendering (Not supervised by radiologist): MIP and/or 3D reconstructed images were created by the technologist. Radiation optimization: All CT scans at this facility use at least one of these dose optimization techniques: automated exposure control; mA and/or kV adjustment per patient size (includes targeted exams where dose is matched to clinical indication); or iterative reconstruction. Contrast material: ISOVUE 370; Contrast volume: 80 ml; Contrast route: INTRAVENOUS (IV); COMPARISON: CR XR CHEST PORTABLE 11/06/2024 5:41 PM FINDINGS: Pulmonary arteries: Normal. No pulmonary emboli. Aorta: Unremarkable. No aortic aneurysm. No aortic dissection. Lungs: Left upper lobe calcified nodule compatible with prior granulomatous process. Pleural spaces: Unremarkable. No pneumothorax. No pleural effusion. Heart: Unremarkable. No cardiomegaly. No pericardial effusion. Lymph nodes: Unremarkable. No enlarged lymph nodes. Liver: There is diffuse hypoattenuation of the liver compatible with moderate hepatic steatosis. Bones/joints: Unremarkable. No acute fracture. Soft tissues: Unremarkable. IMPRESSION: No acute findings.
[2024-11-06 17:26] LABS: Basophils # 0.1 K/mm3 (0-0.2); Basophils % 0.5 % (0.1-2.0); Eosinophils # 0.3 K/mm3 (0.0-0.4); Eosinophils % 2.1 % (0.1-12.0); Hematocrit 42.9 % (42.0-52.0); Hemoglobin 14.8 g/dL (14.1-18.0); Lymphocytes % 27.1 % (10-50); Mean Corpuscular HGB Conc 34.5 g/dL (31.8-35.4); Mean Corpuscular Hemoglobin 33.3 pg (27.0-31.2); Mean Corpuscular Volume 96.4 fl (80-94); Mean Platelet Volume 9.5 fl (7.4-10.4); Monocytes # 0.9 K/mm3 (0.1-1.0); Neutrophils # 9.3 K/mm3 (1.8-7.8); Neutrophils % 63.8 % (37.0-80.0); Platelet Count 272 K/mm3 (142-424); Red Blood Count 4.45 M/mm3 (4.60-6.20); Red Cell Distribution Width 12.2 % (11.5-17.5); White Blood Count 14.6 K/mm3 (4.8-10.8)
[2024-11-06 17:31] VITALS: BP 128/87; PULSE 83; RESP 16; O2SAT 96
[2024-11-06 17:36] LABS: Coronavirus 19, PCR Not Detected (NotDetected); Influenza A, PCR Not Detected (NotDetected); Influenza B, PCR Not Detected (NotDetected)
[2024-11-06] MEDS: ACETAMINOPHEN 1,000MG/100ML VIAL 1000 MG IV (17:38)
[2024-11-06] MEDS: KETOROLAC 30MG/ML VIAL 15 MG IV (17:39)
[2024-11-06] MEDS: ONDANSETRON 4MG/2ML VIAL 4 MG IV (17:39)
[2024-11-06] MEDS: ASPIRIN 81MG CHEWABLE TABLET 324 MG PO (17:39)
[2024-11-06] MEDS: BELLADONNA ALKALOIDS 60 ML ML PO (17:39)
[2024-11-06 17:42] LABS: Magnesium 2.3 mg/dl (1.6-2.3)
[2024-11-06 17:43] LABS: Alanine Aminotransferase 47 U/L (12-78); Albumin Level 4.6 g/dl (3.5-5.0); Albumin/Globulin Ratio 1.8 (1.1-1.8); Alkaline Phosphatase 81 U/L (38-126); Anion Gap 10.1 mEq/L (5-15); Aspartate Amino Transferase 44 U/L (17-59); Bilirubin,Total 0.4 mg/dl (0.2-1.3); Blood Urea Nitrogen 16 mg/dl (9-20); Calcium 9.1 mg/dl (8.4-10.2); Carbon Dioxide 30 mmol/L (22.0-30.0); Chloride 104 mmol/L (98-107); Creatinine Clearance Estimated 134 mL/min (50-200); Estimated Glomerular Filt Rate 61 ml/min (>60); GFR (African American) 74 ML/MIN (>60); Globulin 2.6 g/dL (1.3-3.2); Glucose 87 mg/dl (74-100); INR 0.86 (0.9-1.1); Lipase 174 U/L (23-300); Potassium 4.1 mmoL/L (3.5-5.1); Prothrombin Time 9.8 seconds (10.1-12.5); Sodium 140 mmol/L (136-145); Total Protein,Serum 7.2 g/dl (6.3-8.2)
[2024-11-06 17:45] VITALS: BP 128/87; PULSE 96; RESP 14; O2SAT 98
[2024-11-06 17:52] LABS: NT Pro Brain Natriuretic Pep. < 20.0 pg/mL (0-125)
[2024-11-06] MEDS: IOPAMIDOL-370 (76%);100ML BOTTLE 70 ML IV (17:55)
[2024-11-06] MEDS: SODIUM CHLORIDE 0.9% 10ML SYR (RAD ONLY) 10 ML IV (17:55)
[2024-11-06] MEDS: 0.9 % SODIUM CHLORIDE 50 ML VIAL IV (17:55)
--- NOTE | 2024-11-06 17:59 | PC.NURSE ---
PT RETURNED TO ROOM FROM RAD
[2024-11-06 18:00] LABS: Procalcitonin 0.099 ng/mL (0.0-2.0)
[2024-11-06 18:08] LABS: Troponin I < 0.01 ng/ml (0.00-0.034)
[2024-11-06 18:30] VITALS: BP 129/85; PULSE 92; RESP 17; O2SAT 95
[2024-11-06 19:09] LABS: HIV Combo NEGATIVE (Negative)
[2024-11-06] MEDS: HYDROMORPHONE 2MG/ML SYRINGE 0.5 MG IV (19:12)
[2024-11-06] MEDS: diphenhydrAMINE 50MG/ML VIAL 25 MG IV (19:12)
[2024-11-06 19:17] LABS: Hepatitis C Ab Qual. W/ RFX NEGATIVE (Negative)
[2024-11-06 19:55] VITALS: BP 127/89; PULSE 89; RESP 16; TEMP 36.8; O2SAT 96
== END 2024-11-06 19:56 | disposition home or self-care (01) ==
PROVIDERS: Physician Assistant; Emergency Provider Emergency Medicine; PCP Nurse Practitioner Family
DX: R07.9 Chest pain, unspecified (principal); R10.11 Right upper quadrant pain; R06.09 Other forms of dyspnea; I10 Essential (primary) hypertension; Z72.0 Tobacco use
CPT/HCPCS: 71045; 71275; 74177; 80053; 83690; 83735; 83880; 84145; 84484; 85025; 85610; 86803; 87389; 87636; 93005; 96374; 96375; 99291; J0131; J1171; J1200; J1885; J2405; Q9967